=== PATIENT | female | born 1965 | race Caucasian/White ===

== ENCOUNTER 2019-06-20 15:42 | Emergency (ER) | payer BC ==
--- OUTSIDE RECORDS SUMMARY | 2019-06-20 15:50 | XMS REPORT | Continuity of Care Document ---
:1965 External Reference #:[id number] Author Name Abbey Knight PA Address [address] 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 Onset: 07/18/2017 Metacarpophalangeal sprain Ian Barrera M.D. Onset: 07/18/2017 Social History Type Date Description Comments Sex Unknown Tobacco Use Start: Unknown Never Smoked Cigarettes ETOH Use Currently consumes alcohol socially Tobacco Use Start: Unknown Patient has never smoked Smoking Status Reviewed: 06/17/19 Patient has never smoked Exercise Type/Frequency Exercises regularly Allergies, Adverse Reactions, Alerts Active Allergies Reaction Severity Comments Date Aspirin Anaphylaxis 04/12/2017 Sulfa Drugs Urticaria 04/12/2017 Contrast Dye Anaphylaxis 04/12/2017 Aleve wheezing 06/17/2019 Medications Active Medications SIG Qnty Indications Ordering Date Provider Hydrochlorothiazide 1 by mouth 90Harriet Renteria MD 11/05/2015 25mg Tablets every day Spironolactone 1 by mouth 90taHarriet Hernandez MD 25mg Tablets every day Symbicort 2 puff once a Unknown 160-4.5mcg/Act Aerosol day Prednisone 2 tabs by Unknown 20mg Tablets mouth once daily as needed Tylenol Extra Strength 2 tabs by Unknown 500mg mouth every 4 Tablets hours as needed for pain Aleve 1 by mouth Unknown 220mg Capsules twice a day after meals History Medications Medrol medrol dose pack Felicitas Nicole 06/16/2019 - 4mg Christina, MSN, BILINGUAL TEACHER ASSISTANT 06/17/2019 Tablets Immunizations Description No Information Available Vital Signs Date Vital Result Comment 06/17/2019 9:21am BP Systolic 132 mmHg BP Diastolic 74 mmHg Body Temperature 98.2 F Heart Rate 72 /min Height 65 inches 5'5" Weight 201.00 lb BMI (Body Mass Index) 33.4 kg/m2 BSA (Body Surface Area) 1.98 m2 [place] body weight in kilograms 57 kg O2 % BldC Oximetry 96 % 09/18/2018 8:34am BP Systolic 143 mmHg BP Diastolic 90 mmHg Body Temperature 98.2 F Heart Rate 73 /min Respiratory Rate 16 /min O2 % BldC Oximetry 96 % Pain Level 0 Results Test Date Facility Test Result H/L Range Note Xray 06/17/2019 [facility] - Orthopedic RMP, L-Spine, < pending> [address] Complete (min [address] [place] [address] views) [phone] RMP, Hip, LT, Ap & Lateral Including Pelvis <pending> Procedures Date Code Description Status 06/17/2019 02790 Radiologic Exam Hip Unilateral With Pelvis 2-3 Views Completed 06/17/2019 80214 Radiology, L-S Spine Complete Completed 10/01/2010 [id number] Mammogram Completed Medical Devices Description No Information Available Encounters Type Date Location Provider Dx Diagnosis Office Visit 06/17/2019 Orthopaedic Office Abbey Knight, M25.552 Pain in left hip 9:15a [facility] M54.32 Sciatica, left side M16.12 Unilateral primary osteoarthritis, left hip Assessments Date Code Description Provider 06/17/2019 M25.552 Pain in left hip Abbey Knight PA 06/17/2019 M54.32 Sciatica, left side Abbey Knight PA 06/17/2019 M16.12 Unilateral primary osteoarthritis, left hip Abbey Knight PA Plan of Treatment Future Appointment(s):07/08/2019 8:30 am - Abbey Knight PA at [id number]/17/2019 - Abbey Knight, PAM25.552 Pain in left hipM54.32 Sciatica, left sideNew Therapy:Physical TherapyComments:I think the majority of her pain is coming from the sciatica since her x-rays look very good. I think she should continue with the prednisone taper and not use the Aleve due to her allergy. Tylenol if needed. Ice, heat as needed. Physical therapy is highly recommended and I believe will be the most helpful for her. Patient will return to the office in 3 weeks.Follow up:3wkM16.12 Unilateral primary osteoarthritis, left hipNew Therapy:Physical Therapy Functional Status Description No Information Available Mental Status Description No Information Available Referrals Description No Information Available
[2019-06-20 16:02] VITALS: BP 128/71
--- NOTE | 2019-06-20 16:41 | UC ---
Back Pain HPI - HPI Summary HPI Summary: 54-year-old woman comes in with a chief complaint of a left sciatic pain. 3 days ago she woke up the morning with pain in her left buttock going down her left leg. She was seen by [facility] and started on a prednisone taper. Patient has allergic reaction aspirin therefore she does not take nonsteroidal anti-inflammatories. At work she's been putting a heating pad on it and everything is getting worse. Reports numbness in the left foot. Denies any back pain. Denies any weakness. Did have a similar episode within the last year that did resolve on its own. She has been taking acetaminophen as not helping with the pain. - History of Current Complaint Chief Complaint: UCBackPain Stated Complaint: LOW BACK/SCIATIC PAIN Time Seen by Provider: 06/20/19 16:24 Hx Last Menstrual Period: end of last month Pain Intensity: 10 - Allergies/Home Medications Allergies/Adverse Reactions: Allergies Allergy/AdvReac Type Severity Reaction Status Date / Time aspirin Allergy Airway Verified 06/20/19 16:03 Obstruction Sulfa (Sulfonamide Allergy Hives Verified 06/20/19 16:03 Antibiotics) Home Medications: Home Medications Budesonide/Formote 160/4.5(NF) [Symbicort 160/4.5 (NF)] 1 puff INH DAILY [History Confirmed 06/20/19] Hydrochlorothiazide TAB* [Hydrodiuril TAB*] 25 mg PO DAILY 06/20/19 [History Confirmed 06/20/19] Spironolactone TAB* [Aldactone TAB*] 25 mg PO DAILY 06/20/19 [History Confirmed 06/20/19] predniSONE TAB* [Deltasone 10 MG TAB*] 30 mg PO DAILY 06/20/19 [History Confirmed 06/20/19] PMH/Surg Hx/FS Hx/Imm Hx Previously Healthy: Yes Cardiovascular History: Hypertension - Surgical History Surgical History: Yes Surgery Procedure, Year, and Place: sinus surgery x 3 for polyps. etopic 1987. right thumb surgery - Family History Known Family History: Positive: Non-Contributory - Social History Alcohol Use: Occasionally Substance Use Type: None Smoking Status (MU): Never Smoked Tobacco Review of Systems All Other Systems Reviewed And Are Negative: Yes Constitutional: Positive: Negative Skin: Positive: Negative Eyes: Positive: Negative ENT: Positive: Negative Respiratory: Positive: Negative Cardiovascular: Positive: Negative Gastrointestinal: Positive: Negative Genitourinary: Positive: Negative Motor: Positive: Negative Neurovascular: Positive: Decreased Sensation Musculoskeletal: Positive: Other: - SEE HPI Neurological: Positive: Numbness Psychological: Positive: Negative Is Patient Immunocompromised?: No Physical Exam Triage Information Reviewed: Yes Appearance: Well-Appearing, Well-Nourished, Pain Distress - MILD/MODERATE Vital Signs: Initial Vital Signs Temp 99.3 F 06/20/19 15:54 Pulse 80 06/20/19 15:54 Resp 20 06/20/19 15:54 BP 128/71 06/20/19 15:54 Pulse Ox 98 06/20/19 15:54 Vital Signs Reviewed: Yes Eye Exam: Normal Eyes: Positive: Conjunctiva Clear Neck: Positive: Supple Respiratory: Positive: No respiratory distress Musculoskeletal: Positive: Other: - Low back is nontender to palpation. Patient is tender to palpation in the left buttock and the sciatic distribution going down the left leg. Patient has decreased sensation in the foot but she can feel light touch. Normal capillary refill normal dorsalis pedis pulse. Patient has full range of motion of the toes ankle and knee. Strength is normal but increased pain with movement. Neurological: Positive: Alert Psychological: Positive: Age Appropriate Behavior Skin Exam: Normal Back Pain Course/Dx - Course Course Of Treatment: I told the patient to stop taking the acetaminophen and to avoid any kind of overdose with acetaminophen as a can destroyed her liver and kill her. Lantus to take a muscle relaxer and add hydrocodone if needed. She'll continue the steroid taper. She's got arrested much she can and use cold on the area rather than hot. Follow-up with her orthopedist or with sports medicine. Be reevaluated sooner if worse or any questions or concerns. - Differential Dx/Diagnosis Provider Diagnosis: Left sided sciatica Discharge ED - Sign-Out/Discharge Documenting (check all that apply): Patient Departure All imaging exams completed and their final reports reviewed: No Studies - Discharge Plan Condition: Stable Disposition: HOME Prescriptions: Cyclobenzaprine TAB* [Flexeril 10 MG TAB*] 10 mg PO TID PRN #15 tab PRN Reason: Pain - Moderate HYDROcodone/ACETAMIN 5-325 MG* [[place] 5-325 TAB*] 1 tab PO Q4H PRN #20 tab MDD 6 PRN Reason: Pain - Moderate Patient Education Materials: Sciatica (ED), Lower Back Exercises (ED) Referrals: Odette Frank NP [Primary Care Provider] - [facility] [Provider Group] Additional Instructions: FOLLOW UP WITH ORTHOPEDICS OR SPORTS MEDICINE IF NOT COMPLETELY IMPROVED. DO NOT TAKE MORE THAN 3000MG OF ACETAMINOPHEN A DAY ACETAMINOPHEN CAN CAUSE LIVER FAILURE. GET RECHECKED SOONER IF YOUR CONDITION WORSENS; WEAKNESS, NUMBNESS, DIFFICULTY CONTROLLING BOWEL OR BLADDER OR ANY QUESTIONS OR CONCERNS. - Billing Disposition and Condition Condition: STABLE Disposition: Home
== END 2019-06-20 16:49 | disposition home or self-care (01) ==
LOC: UCCORT 15:42
DX: M54.32 Sciatica, left side (principal); Z88.6 Allergy status to analgesic agent; I10 Essential (primary) hypertension
CPT/HCPCS: 99202; G0463